=== PATIENT | male | born 1950 | race Caucasian/White ===

== ENCOUNTER → 2016-04-11 | Outpatient (CLI) | payer OTHER ==
[~2016-04-11] MED LIST: GADOBUTROL 10 ML VIAL IVP ONE
--- NOTE | 2016-04-11 17:47 | MR ---
MRI Abdomen Without and With Contrast 1501 hours History: Previously treated hepatocellular carcinoma. History of cirrhosis. Evaluate for recurrent di sease. (K 74.99). Technique: Axial T2 single shot FSE with breath-hold and fat saturation, axial 2-D FIESTA with fat sa turation, axial T1-weighted in and out of phase, coronal 3-D FIESTA fat saturation, and axial LAVA wi th breath-hold precontrast and dynamic imaging post contrast was obtained. 7 mL of Gadavist IV contra st were utilized. Comparison to prior CT study from May 30, 2013. Findings: There is hypertrophied left lobe of the liver once again identified with lobulated contour compatible with history of cirrhosis. Cavernous transformation is once again noted involving the main portal ve in and central hepatic branches. Recanalized umbilical vein is also suspected. There is no evidence o f focal signal abnormality within the liver or evidence of enhancing hepatic lesion to suggest recurr ent tumor. Spleen remains moderately enlarged measuring 14.1 x 12.2 x 6.7 cm. Small gallstones are once again noted within the gallbladder. There is no gallbladder wall thickening or biliary ductal dilatation. The pancreas and adrenal glands are normal in appearance. There are a few small incidental cysts associated with each kidney. No significant renal mass or hydronephrosis i s evident. The aorta tapers normally. There is no periaortic lymphadenopathy or ascites. Bowel loops are normal in appearance. Bone marrow signal is normal. The visualized lower thoracic spinal cord is normal in contour as well as normal appearing nerve roots to the level of the iliac crest. Impression: 1. No evidence of recurrent hepatic mass. 2. Enlarged left lobe of the liver with lobulated contour compatible with underlying cirrhosis. 3. 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 4. Moderate splenomegaly. 5. Small bilateral incidental renal cysts. 6. Cholelithiasis.
== END ==
LOC: FIMAGING 14:10
PROVIDERS: ATTEND Internal Medicine
DX: R16.2 Hepatomegaly with splenomegaly, not elsewhere classified (principal); N28.1 Cyst of kidney, acquired; K80.20 Calculus of gallbladder without cholecystitis without obstruction; Z87.19 Personal history of other diseases of the digestive system
CPT/HCPCS: 74183; A9585

== ENCOUNTER → 2017-11-26 | Outpatient (CLI) | payer OTHER | LOC: FIMAGING 06:57 | PROVIDERS: ATTEND Internal Medicine | DX: K74.60 Unspecified cirrhosis of liver (principal); K80.20 Calculus of gallbladder without cholecystitis without obstruction; N28.1 Cyst of kidney, acquired; Z85.05 Personal history of malignant neoplasm of liver ==

== ENCOUNTER → 2018-05-31 | Outpatient (CLI) | payer OTHER | LOC: FIMAGING 06:46 | PROVIDERS: ATTEND Internal Medicine | DX: K74.69 Other cirrhosis of liver (principal); K80.20 Calculus of gallbladder without cholecystitis without obstruction ==